=== PATIENT | female | born 1990 | race Caucasian/White ===

== ENCOUNTER 2018-09-20 10:22 | Emergency (ER) | payer BC, OTHER ==
[2018-09-20 10:29] VITALS: BP 106/69
--- NOTE | 2018-09-20 11:32 | UC ---
Respiratory Complaint HPI - HPI Summary HPI Summary: PATIENT IS 17 WEEKS . HAS HAD 3-4 WEEKS OF URI SYMPTOMS. STATES SOME SYMPTOMS HAVE IMPROVED BUT THE COUGH HAS BEEN PERSISTENT. WAS ENCOURAGED TO SEEK EVALUATION BY HER PARTNER. NO FEVER. NO ABDOMINAL PAIN OR LOW BACK PAIN. NO VAGINAL BLEEDING OR LOSS OF FLUID. - History of Current Complaint Chief Complaint: UCRespiratory Stated Complaint: PRODUCTIVE COUGH Time Seen by Provider: 09/20/18 10:43 Hx Obtained From: Patient Onset/Duration: Gradual Onset, Lasting Weeks, Still Present Timing: Constant Severity Initially: Mild Severity Currently: Mild Pain Intensity: 0 Pain Scale Used: 0-10 Numeric Character: Cough: Productive Aggravating Factors: Nothing Alleviating Factors: Nothing Associated Signs And Symptoms: Positive: URI, Nasal Congestion. Negative: Dyspnea, Fever, Chills, Wheezing - Allergies/Home Medications Allergies/Adverse Reactions: Allergies Allergy/AdvReac Type Severity Reaction Status Date / Time No Known Allergies Allergy Verified 09/20/18 10:30 Home Medications: Home Medications 105/Iron/Folic AC/Dha [Prena1 True Combo Pack] 1 tab PO DAILY 09/20/18 [History Confirmed 09/20/18] PMH/Surg Hx/FS Hx/Imm Hx Previously Healthy: Yes - Surgical History Surgical History: Yes Surgery Procedure, Year, and Place: left knee acl and breast reduction - Family History Known Family History: Positive: Non-Contributory - Social History Alcohol Use: None Substance Use Type: None Smoking Status (MU): Never Smoked Tobacco Review of Systems All Other Systems Reviewed And Are Negative: Yes Constitutional: Positive: Fatigue ENT: Positive: Nasal Discharge Respiratory: Positive: Cough Cardiovascular: Positive: Negative Gastrointestinal: Positive: Negative Genitourinary: Positive: Negative Physical Exam Triage Information Reviewed: Yes Appearance: Well-Appearing, No Pain Distress, Well-Nourished Vital Signs: Initial Vital Signs Temp 98 F 09/20/18 10:27 Pulse 78 09/20/18 10:27 Resp 17 09/20/18 10:27 BP 106/69 09/20/18 10:27 Pulse Ox 100 09/20/18 10:27 Vital Signs Reviewed: Yes Eyes: Positive: Conjunctiva Clear ENT: Positive: Hearing grossly normal, Pharynx normal, TMs normal Neck: Positive: Supple, Nontender, No Lymphadenopathy Respiratory Exam: Normal Cardiovascular Exam: Normal Abdomen Description: Positive: Soft, Other: - GRAVID Musculoskeletal: Positive: No Edema Neurological: Positive: Alert Psychological: Positive: Age Appropriate Behavior Skin: Negative: Rashes UC Diagnostic Evaluation - Laboratory O2 Sat by Pulse Oximetry: 100 Respiratory Course/Dx - Differential Dx/Diagnosis Provider Diagnosis: Upper respiratory infection Discharge - Sign-Out/Discharge Documenting (check all that apply): Patient Departure All imaging exams completed and their final reports reviewed: No Studies - Discharge Plan Condition: Stable Disposition: HOME Patient Education Materials: Upper Respiratory Infection (ED) Referrals: Jacoob Millard RETAIL SERVICE SPECIALIST [Primary Care Provider] - If Needed Additional Instructions: YOUR SYMPTOMS ARE LIKELY VIRALLY MEDIATED AND SHOULD RESOLVE ON THEIR OWN WITH TIME. GIVEN YOUR THIS WILL TAKE LONGER THAN NORMAL. THE COUGH WILL LINGER. NO INDICATION FOR ANTIBIOTICS AT PRESENT. REST, HYDRATE, TYLENOL NEEDED. NO IBUPROFEN OR ALEVE IN . KEEP YOUR OB APPT NEXT WEEK. - Billing Disposition and Condition Condition: STABLE Disposition: Home
== END 2018-09-20 11:28 | disposition home or self-care (01) ==
LOC: UCEAST 10:22
DX: J06.9 Acute upper respiratory infection, unspecified (principal); O26.892 Other specified pregnancy related conditions, second trimester; Z3A.16 16 weeks gestation of pregnancy
CPT/HCPCS: 99211; G0463

== ENCOUNTER 2019-03-01 21:42 | Inpatient (IN) | payer BC ==
[2019-03-01] MEDS ORDERED: Buffered Lidocaine 1% SYRIN* 1 ML/SYRINGE INTRADERM ONE (22:38)
[2019-03-01] MEDS ORDERED: Nalbuphine* 10 MG/ML 1 ML VIAL IV ONE (22:38)
[2019-03-01] MEDS ORDERED: Promethazine INJ(RESTRICTED)* 25 MG/ML 1 ML VIAL IV ONE (22:38)
--- NOTE | 2019-03-02 00:42 | HP ---
General Information - General Information Maternal Age: 28 Grav: 1 Para: 0 SAB: 0 IEA: 0 Estimated Due Date: 03/04/19 Determined By: LMP Gestational Age in Weeks/Days: 39 w 5d Maternal Blood Type and Rh: A Negative - Results this Serology/RPR Result: Non-Reactive Rubella Result: Immune HBsAg Result: Negative HIV Result: Negative GBS Culture Result: Negative Past Medical History Delivery History Comment: Primigravida Past Medical History Comment: depression/anxiety--weaned off Prozac prior to Past Surgical History Comment: Breast reduction 2010 L ACL repair 2010 Pertinent Family History: See Records - Antepartal Records Antepartal Records: Reviewed, Uncomplicated Review of Systems Constitutional: Uncomfortable CV Complaint: No Respiratory: Shortness of Breath: No Gastrointestinal: Nausea, Soft Stool Genitourinary: No Leaking Fluid Musculoskeletal: Contractions Neurological: No Headache Movement: Normal Exam Allergies/Adverse Reactions: Allergies No Known Allergies Allergy (Verified 09/20/18 10:30) - Measurements Height: 5 ft 4 in Weight: 261 lb Body Mass Index (BMI): 44.8 Pre- Weight: 225 lb - Exam Breast: - - soft, no masses Extremities: No Edema Heart: Normal Rhythm/Heart Sounds HEENT: No Significant Findings Lungs: Clear Bilaterally Reflexes: DTR 2+ Thyroid: No Thyromegaly - Abdominal Exam Abdomen Exam: Non-Tender - Ultrasound/Biophysical Profile Ultrasound Status: Not Done Targeted Exam Findings Estimated Weight: 8.5 lbs Cervical Exam: 3cm Effacement: 80% Station: -1 Presenting Part: Vertex Membrane Status: Intact EFM Findings - External Monitor Findings Baseline Heart Rate: 135 External Monitor Findings: Accelerations Present, No Pattern of Variable or Late Decelerations, Variability Moderate, Baseline Stable External Monitor Findings Comment: category 1 Contractions: Regular, Moderate Contraction Frequency: every 5 Assessment/Plan - Assessment primip in early labor Some relief from Nubain/Phenergan, would like epidural - Obstetrical Risk Factors Obstetrical Risk Factors: Obesity - Plan Plan: Admit - Anticipate Vaginal Delivery - Date/Time of Admission Date of Admission: 03/01/19 Time of Admission: 22:30
[2019-03-02] MEDS: Lactated Ringers 1000 ML Bag* 1,000 ML IV ONE ×2 (01:00→06:14)
[2019-03-02 01:36] LABS: Hematocrit 35 % (35-47); Hemoglobin 11.4 g/dL (12.0-16.0); Mean Corpuscular HGB Conc 33 g/dL (31-36); Mean Corpuscular Hemoglobin 29 pg (27-31); Mean Corpuscular Volume 87 fL (80-97); Mean Platelet Volume 9.5 fL (7.4-10.4); Platelet Count 285 10^3/uL (150-450); Red Cell Distribution Width 15 % (10-15); White Blood Count 18.6 10^3/uL (3.5-10.8)
[2019-03-02] MEDS: Lactated Ringers 1000 ML Bag* 1,000 ML IV SCH ×4 (01:36→15:07)
[2019-03-02] MEDS ORDERED: OBEPIDURAL* 250 ML EPIDURAL ONE (02:08)
[2019-03-02] MEDS ORDERED: Oxytocin in LR* 20 UNITS/1,000 ML BAG IVPB ONE (04:24)
--- NOTE | 2019-03-02 07:55 | PN ---
Progress Note - Progress Note Date of Service: 03/02/19 Note: comfortable after epidural. On pitocin Contractions every 3 min FHT: baseline 150, minimal variability, mod with scalp stim. No decels Cervix: 6cm, 100%, vyx -1 AROM: clear Continue pitocin, await full dilation
[2019-03-02] MEDS ORDERED: Famotidine TAB* 20 MG ONE (08:01)
[2019-03-02] MEDS: Famotidine TAB* 20 MG PO PRN (08:03)
--- NOTE | 2019-03-02 09:27 | PN ---
Progress Note - Progress Note Date of Service: 03/02/19 Note: S: Pt is resting in bed with CEI infusing Feeling pressure with contractions O: 117/74, HR 74 Pitocin@6mU VE deferred A: G1, IUP@39+5 GBS negative, A negative VSS AROM at 0800, clear fluid FHR 150, minimal to moderate variability, variable decelerations P: VE PRN Anticipate
--- NOTE | 2019-03-02 10:20 | PN ---
Progress Note - Progress Note Date of Service: 03/02/19 Note: Contractions difficult to assess with external monitor IUPC placed without complication Contractions now tracing well, q2 mins, good resting tone FHR: 155, moderate variability, early vs late decels Pitocin halved, now 3mU VE: 7/100/-1. +bloody show Pt in right lateral, peanut ball in place Pt feeling pressure with contractions and starting to shake. Anticipate progression to complete and
[2019-03-02] MEDS ORDERED: Ropivacaine (OR use only) 2 MG/ML 10 ML ONE (10:59)
--- NOTE | 2019-03-02 11:03 | PN ---
Progress Note - Progress Note Date of Service: 03/02/19 Note: Called by RN, pt feels like she has to push. Feeling intense pressure with contractions, moaning and shaking Anesthesia to bolus Tima every 2 minutes, good resting tone VE: 9/100/0, +bloody show FHR 155, moderate variability, early deceleration and occasional late decel Pitocin off Well supported by at bedside Anticipate progression to
--- NOTE | 2019-03-02 12:06 | PN ---
Progress Note - Progress Note Date of Service: 03/02/19 Note: Pt resting after bolus, still feeling pressure with contractions Tima every 2-3 minutes, good resting tone VE: 9/100/0, +bloody show; no change from last check FHR 155, periods of minimal variability - return to moderate variability after exam, brief accel, early decelerations Well supported by at bedside Anticipate progression to
[2019-03-02] MEDS ORDERED: Ondansetron INJ* 2 MG/ML VIAL IV ONE (12:54)
--- NOTE | 2019-03-02 12:56 | PN ---
Progress Note - Progress Note Date of Service: 03/02/19 Note: Pt uncomfortable with contractions Tima every 2-3 minutes, good resting tone VE: 9/100/0, +bloody show; no change from last check FHR 160, periods of minimal variability - return to moderate variability after exam, brief accel, early decelerations Well supported by at bedside Anticipate progression to
[2019-03-02] MEDS ORDERED: Ropivacaine 0.2% * 2 MG/ML VIAL ONE (13:27)
[2019-03-02] MEDS ORDERED: ceFOXitin 2 GM IVPREMIX* 2 GM/50 ML BAG ONE (15:03)
[2019-03-02] MEDS ORDERED: Sodium Citrate/Citric Acid* 15 ML UDC ONE (15:03)
--- NOTE | 2019-03-02 15:11 | PN ---
Progress Note - Progress Note Date of Service: 03/02/19 Note: Pt uncomfortable with contractions - minimal relief with anesthesia bolus Tima every 2-3 minutes, good resting tone. IUPC in place - adequate MVUs. VE: 9/100/0, +bloody show; no change from last check, 4 hours with no cervical change Kimi Ya MD advised of labor arrest. Plan for . NICU and anesthesia aware. FHR 160, moderate variability - no evidence of metabolic acidemia Well supported by at bedside
[2019-03-02] MEDS ORDERED: Morphine PF AMP (0.5MG/ML)* 5 MG/10 ML AMP ONE (15:13)
[2019-03-02] MEDS ORDERED: Ondansetron INJ* 2 MG/ML VIAL ONE (15:13)
[2019-03-02] MEDS ORDERED: Phenylephrine 40 MCG/ML SYRINGE ONE ×2 (15:13→16:51)
[2019-03-02] MEDS ORDERED: OXYTOCIN* 10 UNITS/ML 1 ML VIAL ONE (15:13)
--- NOTE | 2019-03-02 16:17 | PN ---
Progress Note - Progress Note Date of Service: 03/02/19 Note: Pt very uncomfortable with contractions - needs to push VE: 10/100/+2 Anticipate Well supported by at bedside
[2019-03-02] MEDS ORDERED: Dibucaine 1% 28.35 GM TUBE PR PRN (16:21)
[2019-03-02] MEDS ORDERED: Witch Hazel PAD* JAR TOPICAL PRN (16:21)
[2019-03-02] MEDS ORDERED: Glycerin ADULT SUPP PR PRN (16:21)
[2019-03-02] MEDS ORDERED: RHO D Immune Globulin (HUMAN)* 300 MCG = 1,500 I.U. INJ IM ONE (16:21)
--- NOTE | 2019-03-02 16:21 | PROCNOTE ---
[facility] OB: Delivery Note - Delivery A Date of : 03/02/19 Time of : 15:19 [place] Sex: Male Weight at : 8 lb 9 oz Score 1 Minute: 2 Score 5 Minutes: 8 Gestational Age in Weeks and Days at Delivery: 39 Weeks and 5 Days Delivery Method: Spontaneous Vaginal Labor: Spontaneous Did Patient attempt ?: N/A, No Previous Amniotic Fluid: Clear Estimated Blood Loss: 150 Anesthesia/Analgesia: CEI for Labor Delivered By: Merlyn Retana - Nursery Level of Nursery: Regular/Bedside - Perineum Perineal Injury: Perineal Laceration, 2nd Degree Perineal Injury Comment: repaired with 3-0 rapide under local with CEI infusing Perineal Repair: By Delivering Practioner - Events Delivery Events of Note: Pitocin During Labor - Additional Delivery Notes Additional Delivery Notes: 28 yo at 39+5 weeks admitted for labor. Labor augmented by pitocin and AROM, clear fluid. Category 2 FHR tracing during labor. CEI infused with incomplete relief. Pt's labor stalled at 9 cm for 4 hours. She then quickly progressed to complete and pushed for 7 minutes. Crowned to delivery of liveborn male infant at 1519, OA to KELVIN. Shoulders followed easily. Baby with HR over 100, but poor tone, color and respiratory rate. Cord clamped x2 and moved to warmer for oxygen. NICU staff, including neonatology, initiated care for . recovered quickly and was returned to mom's chest for skin-to -skin. 's were 2 and 8. Spontaneous wen delivery of intact placenta at 1525 by Thony Retana CNM. Pitocin initiated. Fundus firm. EBL 150mL. After careful inspection a second degree perineal laceration was identified and repaired in the usual fashion. Normal anatomy restored, hemostasis achieved. Infant . Mother and in stable condition at time of note.
[2019-03-02] MEDS ORDERED: Phenylephrine 10 MG/ML VIAL* 1 ML VIAL ONE (16:50)
[2019-03-02] MEDS ORDERED: EPHEDrine (Pressors)* 50 MG/ML VIAL ONE (16:51)
[2019-03-02] MEDS ORDERED: Lidocaine 1% INJ* 10 MG/ML 30 ML SDV ONE (16:51)
[2019-03-02] MEDS ORDERED: Lactated Ringers 1000 ML Bag* 1,000 ML IV SCH (17:00)
[2019-03-02] MEDS: Ibuprofen TAB* 600 MG PO PRN (17:17)
[2019-03-02] MEDS ORDERED: Ammonia Inhalant* 1 EA AMP ONE (17:21)
[2019-03-02] MEDS ORDERED: Simethicone TAB* 80 MG TAB.CHEW PO SCH (17:30)
[2019-03-02] MEDS: Docusate CAP* 100 MG PO SCH (20:11)
[2019-03-03] MEDS: Ibuprofen TAB* 600 MG PO PRN ×3 (01:00→14:49)
[2019-03-03] MEDS: Acetaminophen TAB* 325 MG PO PRN ×2 (05:23→10:16)
[2019-03-03 07:34] LABS: ABS Basophils 0.1 10^3/ul (0-0.2); ABS Eosinophils 0.1 10^3/ul (0-0.6); ABS Lymphocytes 2.5 10^3/ul (1.0-4.8); ABS Monocytes 1.2 10^3/ul (0-0.8); ABS Neutrophils 17.1 10^3/ul (1.5-7.7); Eosinophil % 0.3 %; Hematocrit 28 % (35-47); Hemoglobin 9.4 g/dL (12.0-16.0); Mean Corpuscular HGB Conc 33 g/dL (31-36); Mean Corpuscular Hemoglobin 29 pg (27-31); Mean Corpuscular Volume 86 fL (80-97); Mean Platelet Volume 8.9 fL (7.4-10.4); Nucleated Red Blood Cells % 0.1; Platelet Count 217 10^3/uL (150-450); Red Cell Distribution Width 15 % (10-15)
[2019-03-03] MEDS: Ferrous Gluconate TAB* 324 MG TAB PO SCH (08:10)
[2019-03-03] MEDS: Docusate CAP* 100 MG PO SCH ×3 (08:10→21:44)
[2019-03-03] MEDS: Famotidine TAB* 20 MG PO PRN ×2 (09:52→21:40)
[2019-03-04 08:11] VITALS: BP 103/64
[2019-03-04] MEDS: Ibuprofen TAB* 600 MG PO PRN (08:42)
[2019-03-04] MEDS: Ferrous Gluconate TAB* 324 MG TAB PO SCH (08:42)
[2019-03-04] MEDS: Docusate CAP* 100 MG PO SCH (08:42)
== END 2019-03-04 13:15 | disposition home or self-care (01) | DRG 560 ==
LOC: MCHOBOUT 21:42 → MCHOB 22:34
PROVIDERS: ADMIT Midwife; ATTEND Advanced Practice Midwife
PROC: 10E0XZZ Delivery of Products of Conception, External Approach (ICD-10-PCS; principal; 2019-03-02)
PROC: 10907ZC Drainage of Amniotic Fluid, Therapeutic from Products of Conception, Via Natural or Artificial Opening (ICD-10-PCS; 2019-03-02)
PROC: 4A1HXCZ Monitoring of Products of Conception, Cardiac Rate, External Approach (ICD-10-PCS; 2019-03-02)
PROC: 0KQM0ZZ Repair Perineum Muscle, Open Approach (ICD-10-PCS; 2019-03-02)
PROC: 10H07YZ Insertion of Other Device into Products of Conception, Via Natural or Artificial Opening (ICD-10-PCS; 2019-03-02)
PROC: 4A1H7CZ Monitoring of Products of Conception, Cardiac Rate, Via Natural or Artificial Opening (ICD-10-PCS; 2019-03-02)
DX: O99.214 Obesity complicating childbirth (principal); Z37.0 Single live birth; Z3A.39 39 weeks gestation of pregnancy; Z67.11 Type A blood, Rh negative; O70.1 Second degree perineal laceration during delivery; O90.81 Anemia of the puerperium; O76 Abnormality in fetal heart rate and rhythm complicating labor and delivery; O99.62 Diseases of the digestive system complicating childbirth; K21.9 Gastro-esophageal reflux disease without esophagitis
CPT/HCPCS: 36415; 85025; 85027; 85461; 86850; 86900; 86901; A9270-GY; J0694; J2300; J2405; J2550; J2590; J2790; J2795